=== PATIENT | male | born 1955 | race African-American/Black ===

== ENCOUNTER 2016-11-14 07:30 | Day surgery (SDC) | payer MEDICAID ==
[2016-11-14] MEDS ORDERED: NALOXONE HCL INJ/PF 0.4 MG/1 ML SDV ONE (07:34)
[2016-11-14] MEDS ORDERED: ONDANSETRON HCL INJ/PF 4 MG/2 ML SDV ONE (07:34)
[2016-11-14] MEDS ORDERED: PROMETHAZINE HCL INJ 25 MG/1 ML VIAL ONE (07:34)
[2016-11-14] MEDS ORDERED: DIPHENHYDRAMINE HCL 50 MG/ML VIAL ONE (07:34)
[2016-11-14] MEDS ORDERED: MIDAZOLAM 2 MG/2 ML INJ ONE (07:35)
[2016-11-14] MEDS ORDERED: FENTANYL CITRATE INJ/PF 100 MCG/2 ML AMPUL ONE (07:35)
[2016-11-14] MEDS ORDERED: GLUCAGON,HUMAN RECOMB 1 MG INJ ONE (07:36)
[2016-11-14] MEDS ORDERED: FLUMAZENIL INJ 0.5 MG/5 ML VIAL IV ONE (07:36)
[2016-11-14] MEDS ORDERED: EPINEPHRINE INJ 1 MG/10 ML DISP.SYRIN ONE (07:36)
[2016-11-14] MEDS: MIDAZOLAM 2 MG/2 ML INJ ONE ×2 (08:03→08:10)
--- NOTE | 2016-11-14 08:43 | Operative Report ---
Operative Report DATE OF SURGERY: 11/14/16 Operative Report: The risks, benefits and alternatives of the procedure including risks of bleeding, perforation requiring surgery are explained to the patient in detail and informed consent is obtained. The patient is placed in a left lateral decubital position and brought back to the endoscopy suite. Timeout is called. Conscious sedation medications administered. A rectal examination was done which did not reveal any masses, tears or fissures. An Olympus videoscope was inserted into the patient's rectum. Keeping the lumen in sight at all times the scope was then gradually advanced all the way to the cecum. The cecum was identified by the usual anatomical landmarks including the ileocecal valve as well as the appendiceal office. Prep is good. Photo documentations obtained. The scope is then sequentially pulled back via the various segments of the colon including the ascending colon, hepatic flexure ,transverse colon ,splenic flexure, descending colon and finally into the rectosigmoid colon. Retroflexion maneuvers performed. Following this patient's stretcher was turned around, EGD is performed The risks benefits and alternatives of the procedure explained to the patient in detail and informed consent is obtained that GIF Olympus video scope was inserted into the patient's mouth and hypopharynx the esophagus is identified intubated and insufflated the scope was then advanced through the esophagus stomach and duodenum retroflexion maneuver is done the esophagus stomach and first and second portions of the duodenum examined PREOPERATIVE DIAGNOSIS: Anemia question chronic GI bleed. Weight loss. Change of bowel habits POSTOPERATIVE DIAGNOSIS: Gastritis status post biopsy rule out Helicobacter pylori. Ascending colon polyp is removed via snare polypectomy and retrieved. Right-sided colitis status post biopsy rule out collagenous, microscopic, lymphocytic colitis. Diverticulosis. Internal hemorrhoids OPERATION: Colonoscopy with snare polypectomy, and biopsy. EGD with biopsy SURGEON: ANNA NGUYEN ANESTHESIA: Moderate Sedation - 3 mg of Versed, 50 g of fentanyl. TISSUE REMOVED OR ALTERED: Specimen retrieved. Colon specimen obtained. gastric specimen obtained COMPLICATIONS: None. ESTIMATED BLOOD LOSS: done. INTRAOPERATIVE FINDINGS: As noted above. PROCEDURE: Patient tolerated the procedure well. No immediate postprocedure complications are noted. Patient is discharged in good condition. Discharge date 11/14/2016. Discharge diet: Regular. Discharge activity: Regular. Surveillance colonoscopy in 3-5 years Patient does have a 2-3 week follow-up We'll await on biopsies Patient is instructed to call the office or proceed to the emergency room if there are any further problems or questions
[2016-11-14 09:45] VITALS: BP 156/90
== END 2016-11-14 09:40 | disposition home or self-care (01) ==
LOC: END 07:30
PROVIDERS: ATTEND Internal Medicine Gastroenterology
PROC: 0DB68ZX Excision of Stomach, Via Natural or Artificial Opening Endoscopic, Diagnostic (ICD-10-PCS; principal; 2016-11-14 08:00)
PROC: 0DBF8ZX Excision of Right Large Intestine, Via Natural or Artificial Opening Endoscopic, Diagnostic (ICD-10-PCS; 2016-11-14 08:00)
PROC: 0DBK8ZX Excision of Ascending Colon, Via Natural or Artificial Opening Endoscopic, Diagnostic (ICD-10-PCS; 2016-11-14 08:00)
DX: K57.30 Diverticulosis of large intestine without perforation or abscess without bleeding (principal); K64.8 Other hemorrhoids; D12.2 Benign neoplasm of ascending colon; K52.9 Noninfective gastroenteritis and colitis, unspecified; K29.50 Unspecified chronic gastritis without bleeding; D64.9 Anemia, unspecified; E78.5 Hyperlipidemia, unspecified; E11.22 Type 2 diabetes mellitus with diabetic chronic kidney disease; I12.9 Hypertensive chronic kidney disease with stage 1 through stage 4 chronic kidney disease, or unspecified chronic kidney disease; N18.2 Chronic kidney disease, stage 2 (mild); Z79.4 Long term (current) use of insulin; Z86.73 Personal history of transient ischemic attack (TIA), and cerebral infarction without residual deficits; Z79.82 Long term (current) use of aspirin
CPT/HCPCS: 43239; 45380; 45385; 82962; 88342 ×2; 88305 ×2; J2250; J3010; J0171; J1200; J1610; J2310; J2405; J2550; J3490

== ENCOUNTER 2017-03-04 15:46 | Emergency (ER) | payer MEDICAID ==
[2017-03-04] MEDS ORDERED: NORMAL SALINE 1000 ML 1,000 ML IV ONE (16:26)
[2017-03-04] MEDS ORDERED: ONDANSETRON 4 MG TAB.RAPDIS PO ONE (16:27)
--- NOTE | 2017-03-04 16:33 | ER Document Report ---
ED Medical Screen (RME) - General Mode of Arrival: Ambulatory Information source: Patient TRAVEL OUTSIDE OF THE [place] IN LAST 30 DAYS: No <VENUS POWER - Last Filed: 03/04/17 16:25> <GIUSEPPE ROMERO - Last Filed: 03/04/17 19:10> - General Chief Complaint: Nausea/Vomiting/Diarrhea Stated Complaint: BLOOD SUGAR PROBLEMS Notes: Patient presents today with complaints of nausea, vomiting, and diarrhea over the last 2 days. Patient was seen at [facility] prior to arrival today and they sent him here. Patient is an insulin-dependent diabetic and he had a BGL of 220 prior to arrival. Patient denies any abdominal pain. (VENUS POWER) - Related Data Allergies/Adverse Reactions: No Known Allergies Allergy (Verified 11/14/16 07:29) Past Medical History - Past Medical History Cardiac Medical History: Reports: Hx Hypertension Denies: Hx Coronary Artery Disease, Hx Heart Attack Pulmonary Medical History: Denies: Hx Asthma, Hx Bronchitis, Hx COPD, Hx Pneumonia Neurological Medical History: Reports: Hx Cerebrovascular Accident. Denies: Hx Seizures Endocrine Medical History: Reports: Hx Diabetes Mellitus Type 1, Hx Diabetes Mellitus Type 2 Renal/ Medical History: Denies: Hx Peritoneal Dialysis Musculoskeltal Medical History: Denies Hx Arthritis - Immunizations Hx Diphtheria, Pertussis, Tetanus Vaccination: Yes <VENUS POWER - Last Filed: 03/04/17 16:25> Review of Systems - Review of Systems Gastrointestinal: See HPI, Diarrhea, Nausea, Vomiting. denies: Abdominal pain <VENUS POWER - Last Filed: 03/04/17 16:25> Physical Exam - Abdominal Inspection: Other - appears nauseated Distension: No distension Tenderness: Nontender <VENUS POWER - Last Filed: 03/04/17 16:25> Course <VENUS POWER - Last Filed: 03/04/17 16:25> - Laboratory Result Diagrams: 03/04/17 16:50 03/04/17 16:50 <GIUSEPPE ROMERO - Last Filed: 03/04/17 19:10> - Re-evaluation Re-evalutation: 03/04/17 19:10 I personally performed the services described in the documentation, reviewed and edited the documentation which was dictated to the scribe in my presence, and it accurately records my words and actions. (GIUSEPPE ROMERO) - Vital Signs Vital signs: Temp Pulse Resp BP Pulse Ox 97.6 F 90 20 174/92 H 96 03/04/17 16:01 03/04/17 16:01 03/04/17 16:01 03/04/17 16:01 03/04/17 16:01 - Laboratory Laboratory results interpreted by me: 03/04/17 03/04/17 03/04/17 16:29 16:50 16:50 WBC 10.9 H Hgb 12.6 L MCV 77 L MCH 25.1 L RDW 14.9 H Seg Neutrophils % 87.0 H Lymphocytes % 8.7 L Absolute Neutrophils 9.4 H Glucose 183 H POC Glucose 154 H Scribe Documentation - Scribe Written by Jimi:: Jimi Peterson, 03/04/2017 [id number] acting as scribe for :: Donya <VENUS POWER - Last Filed: 03/04/17 16:25>
--- NOTE | 2017-03-04 17:21 | ER Document Report ---
ED GI/ - General Chief Complaint: Nausea/Vomiting/Diarrhea Stated Complaint: BLOOD SUGAR PROBLEMS Time Seen by Provider: 03/04/17 16:26 Mode of Arrival: Ambulatory Information source: Patient TRAVEL OUTSIDE OF THE [place] IN LAST 30 DAYS: No - HPI Notes: 03/04/17 17:20 62-year-old male with history of diabetes presents with vomiting and diarrhea starting yesterday. He denies any pain to me. Denies abdominal discomfort. He is not passing any blood. Diarrhea watery also without blood or mucus. Denies fever. Has city water. No recent travels or antibiotics. No chest pain , shortness of breath. He is unaware of any bad foods. Multiple episodes of both. - Related Data Allergies/Adverse Reactions: No Known Allergies Allergy (Verified 11/14/16 07:29) Past Medical History - General Information source: Patient - Social History Smoking Status: Former Smoker Family History: Reviewed & Not Pertinent - Past Medical History Cardiac Medical History: Reports: Hx Hypertension Denies: Hx Coronary Artery Disease, Hx Heart Attack Pulmonary Medical History: Denies: Hx Asthma, Hx Bronchitis, Hx COPD, Hx Pneumonia Neurological Medical History: Reports: Hx Cerebrovascular Accident. Denies: Hx Seizures Endocrine Medical History: Reports: Hx Diabetes Mellitus Type 1, Hx Diabetes Mellitus Type 2 Renal/ Medical History: Denies: Hx Peritoneal Dialysis Musculoskeltal Medical History: Denies Hx Arthritis Past Surgical History: Denies: Hx Abdominal Surgery, Hx Appendectomy, Hx Bowel Surgery - Immunizations Hx Diphtheria, Pertussis, Tetanus Vaccination: Yes Review of Systems - Review of Systems -: Yes All other systems reviewed and negative Physical Exam - Vital signs Vitals: Temp Pulse Resp BP Pulse Ox 97.6 F 90 20 174/92 H 96 03/04/17 16:01 03/04/17 16:01 03/04/17 16:01 03/04/17 16:01 03/04/17 16:01 - Notes Notes: GENERAL: VS as per nursing doc. Well-appearing, well-nourished and in no acute distress. HEAD: Atraumatic, normocephalic. EYES: Pupils equal round and reactive to light, extraocular movements intact, sclera anicteric, no conjunctival injection or discharge. ENT: Nares patent, oropharynx clear without exudates, fairly dry mucous membranes. NECK: Normal range of motion, supple without lymphadenopathy. LUNGS: Breath sounds clear to auscultation bilaterally and equal. No wheezes rales or rhonchi. HEART: Regular rate and rhythm without murmurs. ABDOMEN: Soft, non-tender, hyperactive bowel sounds. No guarding, no rebound. No masses appreciated. No [place] sign. There is a deficit noted in the epigastrium linea alba region with diastases rectus. No mc hernia is noted and there is no tenderness. BACK: No CVA tenderness. EXTREMITIES: Normal range of motion, no calf tenderness, no edema. NEUROLOGICAL: Cranial nerves grossly intact. Normal speech. Normal sensory and motor exams. No gross cerebellar abnormalities. PSYCH: Normal mood, normal affect. SKIN: Warm, dry, normal turgor, no lesions noted. Course - Re-evaluation Re-evalutation: 03/04/17 18:20 Patient is feeling much better and he is asking for water which I have delivered to him. Abdomen remains benign. Labs showed a slight elevation of the WBC but no significant laboratories and amount is otherwise. Differential diagnosis discussed with patient and if he continues to do well, we will discharge him with symptomatic treatment. - Vital Signs Vital signs: Temp Pulse Resp BP Pulse Ox 97.6 F 97 16 191/106 H 94 03/04/17 16:01 03/04/17 20:02 03/04/17 20:02 03/04/17 20:02 03/04/17 20:02 - Laboratory Result Diagrams: 03/04/17 16:50 03/04/17 16:50 Laboratory results interpreted by me: 03/04/17 03/04/17 03/04/17 16:29 16:50 16:50 WBC 10.9 H Hgb 12.6 L MCV 77 L MCH 25.1 L RDW 14.9 H Seg Neutrophils % 87.0 H Lymphocytes % 8.7 L Absolute Neutrophils 9.4 H Glucose 183 H POC Glucose 154 H Urine Protein Urine Ketones Urine Blood 03/04/17 18:59 WBC Hgb MCV MCH RDW Seg Neutrophils % Lymphocytes % Absolute Neutrophils Glucose POC Glucose Urine Protein >=500 H Urine Ketones TRACE H Urine Blood SMALL H - EKG Interpretation by Nm EKG shows normal: Sinus rhythm - Right normal 85, LVH, non-specific ST abnormallities Discharge - Discharge Clinical Impression: Vomiting and diarrhea, Hyperglycemia Condition: Good Disposition: HOME, SELF-CARE Instructions: Vomiting ([facility]), Antinausea Medication ([facility]), Diarrhea, Nonspecific ([facility]) Prescriptions: Ondansetron [Zofran Odt 4 mg Tablet] 1 - 2 tab PO Q4H PRN #15 tab.rapdis PRN Reason: For Nausea/Vomiting Referrals: MILVIA FORTUNE MD [Primary Care Provider] - Follow up in 3-5 days
[2017-03-04] MEDS ORDERED: ONDANSETRON HCL INJ/PF 4 MG/2 ML SDV IV ONE (17:25)
[2017-03-04 17:32] LABS: ABSOLUTE BASOPHILS # (AUTO) 0.1 10^3/uL (0.0-0.2); ABSOLUTE LYMPHOCYTES (AUTO) 0.9 10^3/uL (0.5-4.7); ABSOLUTE MONOCYTES (AUTO) 0.4 10^3/uL (0.1-1.4); ABSOLUTE NEUT (AUTO) 9.4 10^3/uL (1.7-8.2); BASOPHILS % (AUTO) 0.8 % (0-2); EOSINOPHILS % (AUTO) 0.1 % (0-6); HEMATOCRIT 38.7 % (37.9-51.0); HEMOGLOBIN 12.6 g/dL (13.5-17.0); HGB HCT DIFFERENCE -0.9; LYMPHOCYTES % (AUTO) 8.7 % (13-45); MEAN CORPUSCULAR HEMOGLOBIN 25.1 pg (27.0-33.4); MEAN CORPUSCULAR HGB CONC 32.6 g/dL (32.0-36.0); MEAN CORPUSCULAR VOLUME 77 fl (80-97); MONOCYTES % (AUTO) 3.4 % (3-13); RED BLOOD COUNT 5.02 10^6/uL (4.35-5.55); RED CELL DISTRIBUTION WIDTH 14.9 % (11.5-14.0); WHITE BLOOD COUNT 10.9 10^3/uL (4.0-10.5)
[2017-03-04 17:38] LABS: PROTHROMBIN TIME 12.5 SEC (11.4-15.4)
[2017-03-04 17:49] LABS: ALANINE AMINOTRANSFERASE 25 U/L (21-72); ALBUMIN 4.4 g/dL (3.5-5.0); ALKALINE PHOSPHATASE 95 U/L (38-126); ANION GAP 13 (5-19); ASPARTATE AMINO TRANSFERASE 20 U/L (17-59); BILIRUBIN,DIRECT 0.4 mg/dL (0.0-0.4); BILIRUBIN,TOTAL 0.8 mg/dL (0.2-1.3); BLOOD UREA NITROGEN 14 mg/dL (7-20); CALCIUM 10.2 mg/dL (8.4-10.2); CARBON DIOXIDE 28 mmol/L (22-30); CHLORIDE 103 mmol/L (98-107); CREATININE RESULT 1.18 mg/dL (0.52-1.25); GLUCOSE 183 mg/dL (75-110); POTASSIUM 4.4 mmol/L (3.6-5.0); SODIUM 144.3 mmol/L (137-145); TOTAL PROTEIN 8.1 g/dL (6.3-8.2)
--- NOTE | 2017-03-04 18:42 | EKG REPORT ---
SEVERITY:- ABNORMAL ECG - SINUS RHYTHM CONSIDER LEFT VENTRICULAR HYPERTROPHY BORDERLINE PROLONGED QT INTERVAL : Confirmed by: Douglas Sheldon 04-Mar-2017 18:42:37
[2017-03-04 19:16] LABS: APPEARANCE,URINE SLIGHTLY-CLOUDY; BILIRUBIN,URINE NEGATIVE (NEGATIVE); GLUCOSE, URINE NEGATIVE (NEGATIVE); KETONES,URINE TRACE mg/dL (NEGATIVE); LEUKOCYTE ESTERASE,URINE NEGATIVE (NEGATIVE); NITRITE,URINE NEGATIVE (NEGATIVE); PROTEIN,URINE >=500 mg/dL (NEGATIVE); URINE SPECIFIC GRAVITY 1.027; UROBILINOGEN,URINE NEGATIVE mg/dL (<2.0)
[2017-03-04] MEDS ORDERED: ONDANSETRON ODT 4 MG TAB (6 TAB/DSPK) PO PRN (19:49)
[2017-03-04 20:03] VITALS: BP 191/106
== END 2017-03-04 20:03 | disposition home or self-care (01) ==
LOC: ER 15:46
DX: R11.2 Nausea with vomiting, unspecified (principal); R19.7 Diarrhea, unspecified; E11.65 Type 2 diabetes mellitus with hyperglycemia; I10 Essential (primary) hypertension; Z86.73 Personal history of transient ischemic attack (TIA), and cerebral infarction without residual deficits
CPT/HCPCS: 93005; 99283; 96361; 96374; 36415; 87040; 87086; 82962; 85025; 85610; 80053; 81001; 83605; 93010; J2405; J7030

== ENCOUNTER → 2017-04-15 | Outpatient (CLI) | payer MEDICAID ==
--- NOTE | 2017-04-15 13:56 | RADIOLOGY REPORT (SQ) ---
EXAM DESCRIPTION: U/S RETROPERITON (RENAL/AORTA) COMPLETED DATE/TIME: 04/15/2017 1:43 pm REASON FOR STUDY: CKD STAGE 2 (MILD) N18.2 CHRONIC KIDNEY DISEASE, STAGE 2 (MILD) E11.9 TYPE 2 JAY JAY BETES MELLITUS WITHOUT COMPLICATIONS COMPARISON: None. TECHNIQUE: Dynamic and static grayscale images acquired of the kidneys and bladder and recorded on P ACS. Additional selected color Doppler and spectral images recorded. LIMITATIONS: None. FINDINGS: RIGHT KIDNEY: Normal size. Normal echogenicity. No solid or suspicious masses. No hydronep hrosis. No calcifications. LEFT KIDNEY: Normal size. Normal echogenicity. No solid or suspicious masses. No hydronephrosis. No calcifications. BLADDER: No masses. OTHER FINDINGS: No other significant finding. IMPRESSION: NORMAL RENAL AND BLADDER ULTRASOUND. TECHNICAL DOCUMENTATION: JOB ID: [id number] [employer]- All Rights Reserved
== END ==
LOC: RAD 13:03
PROVIDERS: ATTEND Internal Medicine Nephrology
DX: E11.22 Type 2 diabetes mellitus with diabetic chronic kidney disease (principal); I12.9 Hypertensive chronic kidney disease with stage 1 through stage 4 chronic kidney disease, or unspecified chronic kidney disease; N18.2 Chronic kidney disease, stage 2 (mild)
CPT/HCPCS: 76770

== ENCOUNTER → 2017-04-19 | Outpatient (CLI) | payer MEDICAID ==
[2017-04-19 16:06] LABS: HEMATOCRIT 37.7 % (37.9-51.0); HEMOGLOBIN 11.8 g/dL (13.5-17.0); HGB HCT DIFFERENCE -2.3; MEAN CORPUSCULAR HEMOGLOBIN 24.5 pg (27.0-33.4); MEAN CORPUSCULAR HGB CONC 31.2 g/dL (32.0-36.0); MEAN CORPUSCULAR VOLUME 78 fl (80-97); RED CELL DISTRIBUTION WIDTH 13.7 % (11.5-14.0); WHITE BLOOD COUNT 10.3 10^3/uL (4.0-10.5)
[2017-04-19 16:26] LABS: ALANINE AMINOTRANSFERASE 40 U/L (21-72); ALBUMIN 4.1 g/dL (3.5-5.0); ALKALINE PHOSPHATASE 98 U/L (38-126); ANION GAP 13 (5-19); ASPARTATE AMINO TRANSFERASE 24 U/L (17-59); BILIRUBIN,DIRECT 0.3 mg/dL (0.0-0.4); BILIRUBIN,TOTAL 0.5 mg/dL (0.2-1.3); BLOOD UREA NITROGEN 18 mg/dL (7-20); CALCIUM 9.3 mg/dL (8.4-10.2); CARBON DIOXIDE 27 mmol/L (22-30); CHLORIDE 103 mmol/L (98-107); CREATININE RESULT 1.77 mg/dL (0.52-1.25); GLUCOSE 151 mg/dL (75-110); SODIUM 142.8 mmol/L (137-145); TOTAL PROTEIN 7.4 g/dL (6.3-8.2)
[2017-04-19 18:47] LABS: APPEARANCE,URINE SLIGHTLY-CLOUDY; BILIRUBIN,URINE NEGATIVE (NEGATIVE); GLUCOSE, URINE NEGATIVE (NEGATIVE); KETONES,URINE NEGATIVE (NEGATIVE); LEUKOCYTE ESTERASE,URINE NEGATIVE (NEGATIVE); NITRITE,URINE NEGATIVE (NEGATIVE); PROTEIN,URINE 100 mg/dL (NEGATIVE); URINE SPECIFIC GRAVITY 1.025; UROBILINOGEN,URINE NEGATIVE mg/dL (<2.0)
== END ==
LOC: OD 14:58
PROVIDERS: ATTEND Physician Assistant Medical
DX: I12.9 Hypertensive chronic kidney disease with stage 1 through stage 4 chronic kidney disease, or unspecified chronic kidney disease (principal); N18.2 Chronic kidney disease, stage 2 (mild); E11.9 Type 2 diabetes mellitus without complications
CPT/HCPCS: 36415; 80053; 81001; 85027

== ENCOUNTER 2017-12-01 14:30 | Emergency (ER) | payer MEDICAID ==
[2017-12-01] MEDS ORDERED: NORMAL SALINE 1000 ML 1,000 ML IV ONE (15:25)
--- NOTE | 2017-12-01 15:28 | ER Document Report ---
ED Medical Screen (RME) - General Chief Complaint: Diarrhea Stated Complaint: DIARRHEA,ABDOMINAL PAIN Time Seen by Provider: 12/01/17 15:25 Mode of Arrival: Ambulatory Information source: Patient TRAVEL OUTSIDE OF THE [place] IN LAST 30 DAYS: No - HPI Patient complains to provider of: abd pain; diarrhea Onset: Other - pt. with c/o abd pain and diarrhea for the past week - Related Data Allergies/Adverse Reactions: No Known Allergies Allergy (Verified 11/14/16 07:29) Past Medical History - Social History Chew tobacco use (# tins/day): No Frequency of alcohol use: None Drug Abuse: None - Past Medical History Cardiac Medical History: Reports: Hx Hypertension Denies: Hx Coronary Artery Disease, Hx Heart Attack Pulmonary Medical History: Denies: Hx Asthma, Hx Bronchitis, Hx COPD, Hx Pneumonia Neurological Medical History: Reports: Hx Cerebrovascular Accident. Denies: Hx Seizures Endocrine Medical History: Reports: Hx Diabetes Mellitus Type 1, Hx Diabetes Mellitus Type 2 Renal/ Medical History: Denies: Hx Peritoneal Dialysis Musculoskeltal Medical History: Denies Hx Arthritis Past Surgical History: Denies: Hx Abdominal Surgery, Hx Appendectomy, Hx Bowel Surgery - Immunizations Hx Diphtheria, Pertussis, Tetanus Vaccination: Yes Physical Exam - Vital signs Vitals: Temp Pulse Resp BP Pulse Ox 98.7 F 88 16 148/82 H 96 12/01/17 15:18 12/01/17 15:18 12/01/17 15:18 12/01/17 15:18 12/01/17 15:18 Course - Vital Signs Vital signs: Temp Pulse Resp BP Pulse Ox 98.7 F 88 16 148/82 H 96 12/01/17 15:18 12/01/17 15:18 12/01/17 15:18 12/01/17 15:18 12/01/17 15:18
[2017-12-01 16:04] LABS: ABSOLUTE BASOPHILS # (AUTO) 0.1 10^3/uL (0.0-0.2); ABSOLUTE EOSINOPHILS # (AUTO) 0.3 10^3/uL (0.0-0.6); ABSOLUTE LYMPHOCYTES (AUTO) 1.7 10^3/uL (0.5-4.7); ABSOLUTE MONOCYTES (AUTO) 0.4 10^3/uL (0.1-1.4); BASOPHILS % (AUTO) 0.7 % (0-2); HEMATOCRIT 37.6 % (37.9-51.0); HEMOGLOBIN 11.9 g/dL (13.5-17.0); MEAN CORPUSCULAR HEMOGLOBIN 24.5 pg (27.0-33.4); MEAN CORPUSCULAR HGB CONC 31.7 g/dL (32.0-36.0); MEAN CORPUSCULAR VOLUME 77 fl (80-97); MONOCYTES % (AUTO) 4.5 % (3-13); PLATELET COUNT 297 10^3/uL (150-450); RED BLOOD COUNT 4.86 10^6/uL (4.35-5.55); RED CELL DISTRIBUTION WIDTH 14.4 % (11.5-14.0); SEGMENTED NEUTROPHILS % (AUTO) 70.8 % (42-78); TOTAL CELLS COUNTED % (AUTO) 100 %; WHITE BLOOD COUNT 8.5 10^3/uL (4.0-10.5)
[2017-12-01 16:18] LABS: ALANINE AMINOTRANSFERASE 28 U/L (21-72); ALBUMIN 3.9 g/dL (3.5-5.0); ALKALINE PHOSPHATASE 98 U/L (38-126); ANION GAP 11 (5-19); ASPARTATE AMINO TRANSFERASE 20 U/L (17-59); BILIRUBIN,DIRECT 0.1 mg/dL (0.0-0.4); BILIRUBIN,TOTAL 0.3 mg/dL (0.2-1.3); BLOOD UREA NITROGEN 19 mg/dL (7-20); CALCIUM 9.1 mg/dL (8.4-10.2); CARBON DIOXIDE 23 mmol/L (22-30); CHLORIDE 103 mmol/L (98-107); POTASSIUM 4.1 mmol/L (3.6-5.0); SODIUM 137.4 mmol/L (137-145); TOTAL PROTEIN 6.7 g/dL (6.3-8.2)
--- NOTE | 2017-12-01 16:24 | RADIOLOGY REPORT (SQ) ---
EXAM DESCRIPTION: CT HEAD WITHOUT COMPLETED DATE/TIME: 12/01/2017 4:16 pm REASON FOR STUDY: MS change COMPARISON: 05/18/2016 TECHNIQUE: Axial images acquired through the brain without intravenous contrast. Images reviewed wi th bone, brain and subdural windows. Images stored on PACS. All CT scanners at this facility use dose modulation, iterative reconstruction, and/or weight based d osing when appropriate to reduce radiation dose to as low as reasonably achievable (ALARA). [facility]: Dose Right [facility]: CareDose [facility]: Dose Right [facility]: Teradose 4D [facility]: Flow Studio RADIATION DOSE: CT Rad equipment meets quality standard of care and radiation dose reduction techniq ues were employed. CTDIvol: 64.6 mGy. DLP: 1163 mGy-cm.mGy. LIMITATIONS: None. FINDINGS: VENTRICLES: Prominent. CEREBRUM: No masses. No hemorrhage. No midline shift. Areas of low density in the white matter mos t likely due to chronic micro-vascular ischemic change. No evidence for acute infarction. CEREBELLUM: No masses. No hemorrhage. No alteration of density. No evidence for acute infarction. EXTRAAXIAL SPACES: Age-related involutional change. No fluid collections. No masses. ORBITS AND GLOBE: No intra- or extraconal masses. Normal contour of globe without masses. CALVARIUM: No fracture. PARANASAL SINUSES: No fluid or mucosal thickening. SOFT TISSUES: No mass or hematoma. OTHER: No other significant finding. IMPRESSION: NO ACUTE INTRACRANIAL PROCESS. NO SIGNIFICANT CHANGE FROM PRIOR STUDY. EVIDENCE OF ACUTE STROKE: NO. TECHNICAL DOCUMENTATION: JOB ID: [id number] Quality ID # [id number]: Final reports with documentation of one or more dose reduction techniques (e.g., Au tomated exposure control, adjustment of the mA and/or kV according to patient size, use of iterative reconstruction technique) 2010 [employer]- All Rights Reserved
--- NOTE | 2017-12-01 16:25 | RADIOLOGY REPORT (SQ) ---
EXAM DESCRIPTION: ACUTE ABDOMEN SERIES COMPLETED DATE/TIME: 12/01/2017 4:15 pm REASON FOR STUDY: abd pain COMPARISON: None. NUMBER OF VIEWS: Three views. TECHNIQUE: Frontal chest, supine abdomen and upright/decubitus abdomen radiographic images acquired. LIMITATIONS: None. FINDINGS: CHEST: Lungs clear of infiltrates. FREE AIR: None. No abnormal gas collections. BOWEL GAS PATTERN: Nonobstructive pattern. No dilated loops or air fluid levels. CALCIFICATIONS: No suspicious calcifications. HARDWARE: None in the abdomen. SOFT TISSUES: No gross mass or suggestion of organomegaly. BONES: No acute fracture. No worrisome bone lesions. OTHER: No other significant finding. IMPRESSION: NO RADIOGRAPHIC EVIDENCE FOR ACUTE ABDOMINAL DISEASE. TECHNICAL DOCUMENTATION: JOB ID: [id number] [employer]- All Rights Reserved
[2017-12-01 16:26] LABS: GLUCOSE 482 mg/dL (75-110)
[2017-12-01] MEDS ORDERED: NORMAL SALINE 1000 ML 1,000 ML IV PRN (16:40)
[2017-12-01] MEDS ORDERED: INSULIN REG, HUMAN 100 UNIT/ML 3 ML VIAL (PYX) IV ONE (16:40)
--- NOTE | 2017-12-01 16:50 | ER Document Report ---
ED General <HARPREET HYDE - Last Filed: 12/02/17 00:25> - General Mode of Arrival: Ambulatory Information source: Patient, Relative TRAVEL OUTSIDE OF THE [place] IN LAST 30 DAYS: No <PAYAM MOORE - Last Filed: 12/02/17 11:00> - General Chief Complaint: Altered Mental Status Stated Complaint: DIARRHEA,ABDOMINAL PAIN Time Seen by Provider: 12/01/17 15:25 - HPI Notes: 62-year-old male with a history of insulin dependent type II diabetic hypertension, hyperlipidemia, hypercholesteremia and left-sided stroke presents today with complaints of weakness, disorientation, vomiting that started last night. Patient is a poor historian, he does not have any family here with him on initial interview. Reports watery, liquid stool 1 week. Reports abdominal pain has been occurring for the last week, noted worse on left than the right. Denies any nausea or vomiting. denies any numbness/tingling/weakness down bilateral upper or lower extremities that is different from his baseline, denies any difference in speech changes, patient has a baseline of subtle dysarthria due to his previous stroke. Denies any blurred vision, double vision , loss of vision. Denies any fevers or chills. Denies any chest pain or shortness of breath. Denies any rashes. Denies coffee-ground stool or black tarry stool. Patient has not tried any new medications, food or travel within the last 2 weeks. Eating and drinking without issues. (OSCARPAYAM Delaney) - Related Data Allergies/Adverse Reactions: No Known Allergies Allergy (Verified 11/14/16 07:29) Past Medical History - General Information source: Patient - Social History Smoking Status: Never Smoker Chew tobacco use (# tins/day): No Frequency of alcohol use: None Drug Abuse: None Family History: Reviewed & Not Pertinent, CVA Patient has suicidal ideation: No Patient has homicidal ideation: No - Past Medical History Cardiac Medical History: Reports: Hx Hypertension Denies: Hx Coronary Artery Disease, Hx Heart Attack Pulmonary Medical History: Denies: Hx Asthma, Hx Bronchitis, Hx COPD, Hx Pneumonia Neurological Medical History: Reports: Hx Cerebrovascular Accident. Denies: Hx Seizures Endocrine Medical History: Reports: Hx Diabetes Mellitus Type 1, Hx Diabetes Mellitus Type 2 Renal/ Medical History: Denies: Hx Peritoneal Dialysis Musculoskeltal Medical History: Denies Hx Arthritis Past Surgical History: Denies: Hx Abdominal Surgery, Hx Appendectomy, Hx Bowel Surgery - Immunizations Hx Diphtheria, Pertussis, Tetanus Vaccination: Yes <PAYAM MOORE - Last Filed: 12/02/17 11:00> Review of Systems <HARPREET HYDE - Last Filed: 12/02/17 00:25> - Review of Systems -: Yes ROS unobtainable due to patient's medical condition Constitutional: See HPI EENT: No symptoms reported Cardiovascular: No symptoms reported Respiratory: No symptoms reported Gastrointestinal: See HPI Genitourinary: No symptoms reported Male Genitourinary: No symptoms reported Musculoskeletal: No symptoms reported Skin: No symptoms reported Hematologic/Lymphatic: No symptoms reported Neurological/Psychological: See HPI <PAYAM MOORE - Last Filed: 12/02/17 11:00> - Review of Systems Notes: pt is a poor historian. his caregiver is not at his bedside, reports she is on her way. (PAYAM MOORE) Physical Exam <HARPREET HYDE - Last Filed: 12/02/17 00:25> - Vital signs Interpretation: Hypertensive - General General appearance: Appears well In distress: None - HEENT Head: Normocephalic Eyes: Normal Conjunctiva: Normal Cornea: Normal External canal: Normal Tympanic membrane: Normal Sinus: Normal Nasal: Normal Mouth/Lips: Normal Mucous membranes: Normal Pharynx: Normal Neck: Normal - Respiratory Respiratory status: No respiratory distress Chest status: Nontender Breath sounds: Normal Chest palpation: Normal - Cardiovascular Rhythm: Regular Heart sounds: Normal auscultation Pulses: Normal: Radial Normal capillary refill: Yes - Abdominal Inspection: Normal Distension: No distension Bowel sounds: Normal Organomegaly: No organomegaly - Rectal Tenderness: No Stool: Heme negative Hemorrhoids: External Prostate: Normal - Back Back: Normal, Nontender, Vertebra tenderness - Neurological Neuro grossly intact: Yes Cognition: Normal Orientation: AAOx4 Alpine Coma Scale Eye Opening: Spontaneous Tiarra Coma Scale Verbal: Oriented Alpine Coma Scale Motor: Obeys Commands Tiarra Coma Scale Total: 15 Speech: Dysarthria Cranial nerves: Tongue deviation - to right Motor strength normal: LUE - LUE>RUE equally, LLE>RLE equally Additional motor exam normals: 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 Babinski reflex: Normal (flexor plantar) Sensory: Normal Biceps - Reflex grade: 2 = Normal Triceps - Reflex grade: 2 = Normal Brachioradialis - Reflex grade: 2 = Normal Knee - Reflex grade: 2 = Normal Ankle - Reflex grade: 2 = Normal - Psychological Associated symptoms: Normal affect, Normal mood - Skin Skin Temperature: Warm Skin Moisture: Dry Skin Color: Normal <PAYAM MOORE - Last Filed: 12/02/17 11:00> - Vital signs Vitals: Temp Pulse Resp BP Pulse Ox 98.7 F 88 16 148/82 H 96 12/01/17 15:18 12/01/17 15:18 12/01/17 15:18 12/01/17 15:18 12/01/17 15:18 - Neurological Notes: NIH scale 4 (PAYAM MOORE) Course - Laboratory Result Diagrams: 12/01/17 15:35 12/01/17 19:15 <HARPREET HYDE - Last Filed: 12/02/17 00:25> - Laboratory Result Diagrams: 12/01/17 15:35 12/01/17 19:15 <PAYAM MOORE - Last Filed: 12/02/17 11:00> - Re-evaluation Re-evalutation: Patient alert, well-appearing, he has no complaint on my examination. No overt tenderness on abdominal exam. CAT scan with no acute abnormalities. No stool sample has been obtained at this point. Patient with hyperglycemia but no acidosis per his chemistry, no ketones in the urine. Patient tolerating food and fluids without any difficulty. Patient caretakers at bedside. I had another discussion about the importance of medication compliance and possible short-term and long-term effects of not controlling his blood glucose. Patient and family member state understanding. Patient is to follow-up closely with his provider for additional management and evaluation, discussed return precautions. Patient stable at time of discharge. Patient was able to obtain a stool sample at the last second, nurse reported this to me, stool culture and Gram stain will be run. (HARPREET HYDE) 1615-inital exam. no caregiver at bedside. 1700-Rechecked the patient who is resting comfortably. Discussed the results of the labs/radiology as well as the diagnosis at great length. Guaiac-negative laboratory findings show that patient has a blood glucose 481, patient states he has not been taking his insulin as he has been directed to do. Cardiac enzymes negative for any acute findings, no evidence of leukocytosis. EKG normal sinus rhythm patient, nonspecific ST segment elevations. No STEMI. Patient appears to have still awaiting on patient's physical therapy aid to come to obtain more detailed history about medical issues. 1800-His cousin, Adelina, who is his physical therapy aid states that he is supposed to be taking insulin twice a day to manage his type 2 diabetes. She reports he did not take his blood pressure medication today patient only takes insulin every other day. Patient was recently seen by his PCP, was told her and him that his Hbg A1c "15", PCP stressed importance of checking sugar at least 3 times a day and doing sliding scale insulin per Adelina, Caregiver reports that patient is noncompliant with taking medications. 1830- B/P elevating, will give lisinopril 10mg Patient is still complaining of abdominal pain at this time as well. Pt is drinking p.o. contrast without issues at this time, awaiting for CT scans. disposition given to AP Covarrubias, at 1915. (PAYAM MOORE) - Vital Signs Vital signs: Temp Pulse Resp BP Pulse Ox 98.2 F 88 19 161/98 H 100 12/01/17 19:00 12/01/17 15:18 12/01/17 20:01 12/01/17 20:00 12/01/17 20:01 - Laboratory Laboratory results interpreted by me: 12/01/17 12/01/17 12/01/17 15:35 15:35 17:23 Hgb 11.9 L Hct 37.6 L MCV 77 L MCH 24.5 L MCHC 31.7 L RDW 14.4 H Creatinine 1.52 H Est GFR ( Amer) 57 L Est GFR (Non-Af Amer) 47 L Glucose 482 H* POC Glucose AST Total Protein Albumin Urine Protein 100 H Urine Glucose (UA) >=500 H Urine Blood SMALL H 12/01/17 12/01/17 12/01/17 17:46 18:44 19:15 Hgb Hct MCV MCH MCHC RDW Creatinine 1.37 H Est GFR ( Amer) Est GFR (Non-Af Amer) 53 L Glucose 155 H POC Glucose 396 H 204 H AST 15 L Total Protein 5.9 L Albumin 3.3 L Urine Protein Urine Glucose (UA) Urine Blood 12/01/17 19:44 Hgb Hct MCV MCH MCHC RDW Creatinine Est GFR ( Amer) Est GFR (Non-Af Amer) Glucose POC Glucose 135 H AST Total Protein Albumin Urine Protein Urine Glucose (UA) Urine Blood Discharge <HARPREET HYDE - Last Filed: 12/02/17 00:25> <PAYAM MOORE - Last Filed: 12/02/17 11:00> - Discharge Clinical Impression: Uncontrolled insulin dependent diabetes mellitus Abdominal pain Qualifiers: Abdominal location: generalized Qualified Code(s): R10.84 - Generalized abdominal pain Diarrhea Qualifiers: Diarrhea type: unspecified type Qualified Code(s): R19.7 - Diarrhea, unspecified Condition: Stable Disposition: HOME, SELF-CARE Additional Instructions: Your workup today shows elevated blood sugars, however remaining workup does not show any concerning other abnormalities including imaging. Please take your insulin as prescribed daily to avoid daily symptoms and long- term side effects of uncontrolled elevated blood sugars. Follow-up within the week with your primary care provider. Return for any concerning or worsening symptoms including vomiting, severe abdominal pain, fever, or any other concerning symptoms. Referrals: SUZY SHERWOOD PA-C [NO LOCAL MD] - Follow up in 3-5 days
[2017-12-01 17:44] LABS: APPEARANCE,URINE CLEAR; BILIRUBIN,URINE NEGATIVE (NEGATIVE); COLOR,URINE YELLOW; GLUCOSE, URINE >=500 mg/dL (NEGATIVE); KETONES,URINE NEGATIVE (NEGATIVE); LEUKOCYTE ESTERASE,URINE NEGATIVE (NEGATIVE); NITRITE,URINE NEGATIVE (NEGATIVE); PROTEIN,URINE 100 mg/dL (NEGATIVE); URINE SPECIFIC GRAVITY 1.026; UROBILINOGEN,URINE NEGATIVE mg/dL (<2.0)
[2017-12-01] MEDS ORDERED: LISINOPRIL 10 MG TABLET PO ONE (18:50)
[2017-12-01] MEDS ORDERED: HYDRALAZINE HCL INJ/PF 20 MG/1 ML SDV IV ONE (18:59)
--- NOTE | 2017-12-01 19:33 | RADIOLOGY REPORT (SQ) ---
EXAM DESCRIPTION: CT ABD/PELVIS WITH IV ORAL COMPLETED DATE/TIME: 12/01/2017 7:12 pm REASON FOR STUDY: +abd pain, +diarrhea, LLQ pain COMPARISON: None. TECHNIQUE: CT scan of the abdomen and pelvis performed using helical scanning technique with dynamic intravenous contrast injection. No oral contrast. Images reviewed with lung, soft tissue, and bone windows. Reconstructed coronal and sagittal MPR images reviewed. Delayed images for evaluation of the urinary system also acquired. All images stored on PACS. All CT scanners at this facility use dose modulation, iterative reconstruction, and/or weight based d osing when appropriate to reduce radiation dose to as low as reasonably achievable (ALARA). [facility]: Dose Right [facility]: CareDose [facility]: Dose Right [facility]: Teradose 4D [facility]: Traitify CONTRAST TYPE AND DOSE: contrast/concentration: Isovue 370.00 mg/ml; Total Contrast Delivered: 100.0 ml; Total Saline Delivered: 72.0 ml RENAL FUNCTION: Creatinine 1.52 RADIATION DOSE: CT Rad equipment meets quality standard of care and radiation dose reduction techniq ues were employed. CTDIvol: 9.5 - 13.9 mGy. DLP: 1257 mGy-cm.. LIMITATIONS: None. FINDINGS: LOWER CHEST: No significant findings. No nodules or infiltrates. LIVER: Normal size. No masses. No dilated ducts. SPLEEN: Normal size. No focal lesions. PANCREAS: No masses. No significant calcifications. No adjacent inflammation or peripancreatic fluid collections. Pancreatic duct not dilated. GALLBLADDER: No identified stones by CT criteria. No inflammatory changes to suggest cholecystitis. ADRENAL GLANDS: No significant masses or asymmetry. RIGHT KIDNEY AND URETER: No solid masses. No significant calcifications. No hydronephrosis or hyd roureter. LEFT KIDNEY AND URETER: No solid masses. No significant calcifications. No hydronephrosis or hydr oureter. AORTA AND VESSELS: No aneurysm. No dissection. Renal arteries, SMA, celiac without stenosis. RETROPERITONEUM: No retroperitoneal adenopathy, hemorrhage or masses. BOWEL AND PERITONEAL CAVITY: No masses or inflammatory changes. No free fluid or peritoneal masses. APPENDIX: Not visualized. PELVIS: No mass. No free fluid. Normal bladder. ABDOMINAL WALL: No masses. No hernias. BONES: No significant or acute findings. OTHER: Lipoma in the left rectus femorals. IMPRESSION: NO SIGNIFICANT OR ACUTE FINDING IN THE ABDOMEN OR PELVIS ON CT SCAN WITH IV CONTRAST. TECHNICAL DOCUMENTATION: JOB ID: [id number] Quality ID # [id number]: Final reports with documentation of one or more dose reduction techniques (e.g., Au tomated exposure control, adjustment of the mA and/or kV according to patient size, use of iterative reconstruction technique) 2010 [employer]- All Rights Reserved
[2017-12-01 19:45] LABS: ALANINE AMINOTRANSFERASE 29 U/L (21-72); ALBUMIN 3.3 g/dL (3.5-5.0); ALKALINE PHOSPHATASE 83 U/L (38-126); ANION GAP 10 (5-19); ASPARTATE AMINO TRANSFERASE 15 U/L (17-59); BILIRUBIN,DIRECT 0.1 mg/dL (0.0-0.4); BILIRUBIN,TOTAL 0.2 mg/dL (0.2-1.3); BLOOD UREA NITROGEN 17 mg/dL (7-20); CALCIUM 8.9 mg/dL (8.4-10.2); CARBON DIOXIDE 24 mmol/L (22-30); CHLORIDE 105 mmol/L (98-107); GLUCOSE 155 mg/dL (75-110); POTASSIUM 3.6 mmol/L (3.6-5.0); SODIUM 139.4 mmol/L (137-145); TOTAL PROTEIN 5.9 g/dL (6.3-8.2)
[2017-12-01 20:11] VITALS: BP 161/98
--- NOTE | 2017-12-01 20:45 | EKG REPORT ---
SEVERITY:- BORDERLINE ECG - SINUS RHYTHM BORDERLINE T WAVE ABNORMALITIES BORDERLINE PROLONGED QT INTERVAL : Confirmed by: Douglas Sheldon 01-Dec-2017 20:45:11
== END 2017-12-01 20:47 | disposition home or self-care (01) ==
LOC: ER 14:30
DX: E11.65 Type 2 diabetes mellitus with hyperglycemia (principal); Z79.4 Long term (current) use of insulin; T38.3X6A Underdosing of insulin and oral hypoglycemic [antidiabetic] drugs, initial encounter; Z91.128 Patient's intentional underdosing of medication regimen for other reason; Z91.14 Patient's other noncompliance with medication regimen; R10.84 Generalized abdominal pain; I10 Essential (primary) hypertension; R19.7 Diarrhea, unspecified; R53.1 Weakness; R41.0 Disorientation, unspecified; I69.322 Dysarthria following cerebral infarction
CPT/HCPCS: 93005; 99285; 96361; 96374; 36415; 87045; 87205; 82962; 82550; 85025; 82272; 80053; 81001; 84484; 74022; 70450; 74177; 93010; J0360; J1815; J7030

== ENCOUNTER 2018-09-24 10:19 | Day surgery (SDC) | payer MEDICAID ==
[~2018-09-24 10:19] MED LIST: CHONDR SU A NA/HYALUR INTRAOC KIT (SURGICARE) ONE; EPINEPHRINE INJ/PF 1 MG/1 ML AMPULE ONE; KETOROLAC TROMETHAMINE 0.45% 4 DROP/0.4 ML DROPERETTE OS PRN; LIDOCAINE 1% INJ-PF (10 MG/ML) 30 ML SDV ONE
[2018-09-24] MEDS: CYCLOPENTOLATE 0.2%/PHENYLEPHRINE 1% OPH SOLN 2 ML OS PRN ×3 (11:04→11:24)
[2018-09-24] MEDS: BESIFLOXACIN HCL 0.6% OPH SUSP 5 ML BOTTLE OS PRN ×4 (11:04→11:58)
[2018-09-24] MEDS: TROPICAMIDE 1% OPH SOLN 3 ML OS PRN ×3 (11:04→11:24)
[2018-09-24] MEDS: TETRACAINE HCL 0.5% OPH SOLN 0.6 ML DROPERETTE OS PRN ×3 (11:04→11:39)
[2018-09-24] MEDS ORDERED: MIDAZOLAM 2 MG/2 ML INJ ONE (11:22)
[2018-09-24] MEDS ORDERED: ONDANSETRON HCL INJ/PF 4 MG/2 ML SDV ONE (11:22)
[2018-09-24] MEDS ORDERED: FENTANYL CITRATE INJ/PF 100 MCG/2 ML AMPUL ONE (11:22)
[2018-09-24] MEDS: TOBRAMYCIN SULFATE/DEXAMETH OPH OINTMENT 3.5 GM ONE ×2 (11:58)
== END 2018-09-24 12:44 | disposition home or self-care (01) ==
LOC: SC 10:19
PROVIDERS: ATTEND Ophthalmology
DX: H25.12 Age-related nuclear cataract, left eye (principal); E11.3311 Type 2 diabetes mellitus with moderate nonproliferative diabetic retinopathy with macular edema, right eye; E11.3392 Type 2 diabetes mellitus with moderate nonproliferative diabetic retinopathy without macular edema, left eye; M19.90 Unspecified osteoarthritis, unspecified site; I10 Essential (primary) hypertension; E78.00 Pure hypercholesterolemia, unspecified; F17.210 Nicotine dependence, cigarettes, uncomplicated; Z79.82 Long term (current) use of aspirin; Z79.899 Other long term (current) drug therapy; Z79.4 Long term (current) use of insulin; Z86.73 Personal history of transient ischemic attack (TIA), and cerebral infarction without residual deficits
CPT/HCPCS: 66984; 82962; V2630; J2250; J3490 ×5; J0171; J2405; 142; J3010

== ENCOUNTER 2018-10-08 06:39 | Day surgery (SDC) | payer MEDICAID ==
[~2018-10-08 06:39] MED LIST changes: -CHONDR SU A NA/HYALUR INTRAOC KIT (SURGICARE) ONE; -EPINEPHRINE INJ/PF 1 MG/1 ML AMPULE ONE; +KETOROLAC TROMETHAMINE 0.45% 4 DROP/0.4 ML DROPERETTE OD PRN; -KETOROLAC TROMETHAMINE 0.45% 4 DROP/0.4 ML DROPERETTE OS PRN; -LIDOCAINE 1% INJ-PF (10 MG/ML) 30 ML SDV ONE
[2018-10-08] MEDS ORDERED: FENTANYL CITRATE INJ/PF 100 MCG/2 ML AMPUL ONE (06:47)
[2018-10-08] MEDS ORDERED: MIDAZOLAM 2 MG/2 ML INJ ONE (06:47)
[2018-10-08] MEDS: CYCLOPENTOLATE 0.2%/PHENYLEPHRINE 1% OPH SOLN 2 ML OD PRN ×4 (07:00→07:20)
[2018-10-08] MEDS: BESIFLOXACIN HCL 0.6% OPH SUSP 5 ML BOTTLE OD PRN ×5 (07:00→08:09)
[2018-10-08] MEDS: TROPICAMIDE 1% OPH SOLN 3 ML OD PRN ×3 (07:00→07:20)
[2018-10-08] MEDS: TETRACAINE HCL 0.5% OPH SOLN 0.6 ML DROPERETTE OD PRN ×3 (07:00→07:44)
[2018-10-08] MEDS: LIDOCAINE 1% INJ-PF (10 MG/ML) 30 ML SDV ONE ×2 (07:56)
[2018-10-08] MEDS: CHONDR SU A NA/HYALUR INTRAOC KIT (SURGICARE) ONE ×2 (07:56)
[2018-10-08] MEDS: EPINEPHRINE INJ/PF 1 MG/1 ML AMPULE ONE ×2 (07:56)
[2018-10-08] MEDS: TOBRAMYCIN SULFATE/DEXAMETH OPH OINTMENT 3.5 GM ONE ×3 (07:56→08:09)
== END 2018-10-08 08:49 | disposition home or self-care (01) ==
LOC: SC 06:39
PROVIDERS: ATTEND Ophthalmology
DX: H25.11 Age-related nuclear cataract, right eye (principal); Z98.42 Cataract extraction status, left eye; M19.90 Unspecified osteoarthritis, unspecified site; E11.9 Type 2 diabetes mellitus without complications; I10 Essential (primary) hypertension; E78.00 Pure hypercholesterolemia, unspecified; F17.210 Nicotine dependence, cigarettes, uncomplicated; Z79.82 Long term (current) use of aspirin; Z79.4 Long term (current) use of insulin; Z79.899 Other long term (current) drug therapy
CPT/HCPCS: 66984; 82962; V2630; J2250; J3490 ×5; J0171; J3010; 142